=== PATIENT | male | born 1980 | race Caucasian/White ===

== ENCOUNTER 2017-01-30 20:09 | Emergency (ER) | payer SELFPAY ==
[~2017-01-30] VITALS: Ht 182.9 cm; Wt 97.0 kg
[2017-01-31] MEDS ORDERED: KETOROLAC 30MG/ML VIAL IM ONE
[2017-01-31 00:12] VITALS: BP 128/85
== END 2017-01-31 00:27 | disposition left against medical advice (07) ==
LOC: ER 21:18
DX: S99.921A Unspecified injury of right foot, initial encounter (principal); X58.XXXA Exposure to other specified factors, initial encounter; Y93.89 Activity, other specified; Y92.89 Other specified places as the place of occurrence of the external cause; Y99.8 Other external cause status
CPT/HCPCS: 99281; Z7610; J1885